=== PATIENT | female | born 1935 | race Caucasian/White ===

== ENCOUNTER 2016-11-23 10:41 | Inpatient (IN) | payer MEDICARE, BC ==
[2016-11-23] MEDS ORDERED: RX INFO: IV CONTRAST WAS GIVEN 1 EACH MISC MISCELLANE PRN (11:11)
--- NOTE | 2016-11-23 11:14 | ED ---
General Adult HPI - General Chief complaint: Shortness of Breath Stated complaint: Dyspnea Time Seen by Provider: 11/23/16 11:07 Source: patient, family, RN notes reviewed Mode of arrival: wheelchair Limitations: no limitations - History of Present Illness Initial comments: Patient is a pleasant 80-year-old female presenting to the emergency Department with complaints of dyspnea. Onset of symptoms was a week or 2 ago. Patient has dyspnea that does worsen with exertion. Symptoms improved with rest. Symptoms are minimal at this time. No chest pain. No cough. No fever. No history of similar symptoms previously. No leg pain or swelling. - Related Data Home Medications Medication Instructions Recorded Confirmed No Known Home Medications [No 11/23/16 11/23/16 Known Home Medications] Allergies Allergy/AdvReac Type Severity Reaction Status Date / Time Sulfa (Sulfonamide Allergy Rash/Hives Verified 11/23/16 11:25 Antibiotics) meperidine [From Demerol] AdvReac Nausea & Verified 11/23/16 11:25 Vomiting Review of Systems ROS Statement: Those systems with pertinent positive or pertinent negative responses have been documented in the HPI. ROS Other: All systems not noted in ROS Statement are negative. Constitutional: Denies: fever Eyes: Denies: eye pain ENT: Denies: ear pain Respiratory: Reports: dyspnea. Denies: cough Cardiovascular: Denies: chest pain Endocrine: Denies: fatigue Gastrointestinal: Denies: abdominal pain Genitourinary: Denies: urgency Musculoskeletal: Denies: back pain Skin: Denies: rash Neurological: Denies: weakness Past Medical History Additional Past Medical History / Comment(s): parkinson, History of Any Multi-Drug Resistant Organisms: None Reported Past Surgical History: Cholecystectomy, Hysterectomy Additional Past Surgical History / Comment(s): lung surgery Past Psychological History: No Psychological Hx Reported Smoking Status: Never smoker Past Alcohol Use History: None Reported Past Drug Use History: None Reported General Exam Limitations: no limitations General appearance: alert, in no apparent distress Head exam: Present: atraumatic Eye exam: Present: normal appearance, PERRL ENT exam: Present: normal oropharynx Neck exam: Present: normal inspection Respiratory exam: Present: normal lung sounds bilaterally Cardiovascular Exam: Present: regular rate, normal rhythm GI/Abdominal exam: Present: soft. Absent: tenderness Extremities exam: Present: normal inspection. Absent: pedal edema, calf tenderness Neurological exam: Present: alert Psychiatric exam: Present: normal affect, normal mood Skin exam: Absent: rash Course Vital Signs 11/23/16 11/23/16 11/23/16 10:46 11:43 12:43 Temperature 97.7 F Pulse Rate 113 H 92 88 Respiratory 18 Rate Blood Pressure 114/84 124/74 128/68 O2 Sat by Pulse 96 Oximetry 11/23/16 11/23/16 13:15 13:17 Temperature 97.9 F Pulse Rate 92 86 Respiratory 18 18 Rate Blood Pressure 124/72 124/72 O2 Sat by Pulse 99 96 Oximetry EKG Findings - EKG Comments: EKG Findings:: Sinus tachycardia 104. IA 160. QRS 132. QT 424. QTC 5-7. Left axis. Nonspecific intraventricular conduction block. Septal Q waves. No acute ST change. Medical Decision Making - Medical Decision Making Patient reevaluated and updated. Case discussed in detail with Dr. Jiang, who will admit his patient with consult for Dr. Pandya and Dr. Roman. - Lab Data Result diagrams: 11/23/16 11:11 11/23/16 11:11 Lab Results 11/23/16 11/23/16 11/23/16 Range/Units 11:11 11:11 11:11 WBC 6.9 (3.8-10.6) k/uL RBC 4.82 (3.80-5.40) m/uL Hgb 14.3 (11.4-16.0) gm/dL Hct 43.6 (34.0-46.0) % MCV 90.4 (80.0-100.0) fL MCH 29.6 (25.0-35.0) pg MCHC 32.8 (31.0-37.0) g/dL RDW 13.3 (11.5-15.5) % Plt Count 378 (150-450) k/uL Neutrophils % 87 % Lymphocytes % 5 % Monocytes % 5 % Eosinophils % 2 % Basophils % 0 % Neutrophils # 6.0 (1.3-7.7) k/uL Lymphocytes # 0.3 L (1.0-4.8) k/uL Monocytes # 0.3 (0-1.0) k/uL Eosinophils # 0.1 (0-0.7) k/uL Basophils # 0.0 (0-0.2) k/uL PT (9.0-12.0) sec INR (<1.1) APTT (22.0-30.0) sec Sodium 141 (137-145) mmol/L Potassium 4.1 (3.5-5.1) mmol/L Chloride 99 (98-107) mmol/L Carbon Dioxide 27 (22-30) mmol/L Anion Gap 15 mmol/L BUN 14 (7-17) mg/dL Creatinine 0.79 (0.52-1.04) mg/dL Est GFR (MDRD) Af Amer >60 (>60 ml/min/1.73 sqM) Est GFR (MDRD) Non-Af >60 (>60 ml/min/1.73 sqM) Glucose 118 H (74-99) mg/dL Calcium 9.6 (8.4-10.2) mg/dL Total Bilirubin 0.5 (0.2-1.3) mg/dL AST 17 (14-36) U/L ALT 24 (9-52) U/L Alkaline Phosphatase 126 (38-126) U/L Total Creatine Kinase 21 L (30-135) U/L CK-MB (CK-2) 0.8 (0.0-2.4) ng/mL CK-MB (CK-2) Rel Index 3.8 Troponin I 0.030 (0.000-0.034) ng/mL NT-Pro-B Natriuret Pep pg/mL Total Protein 7.6 (6.3-8.2) g/dL Albumin 3.9 (3.5-5.0) g/dL 11/23/16 11/23/16 Range/Units 11:11 11:11 WBC (3.8-10.6) k/uL RBC (3.80-5.40) m/uL Hgb (11.4-16.0) gm/dL Hct (34.0-46.0) % MCV (80.0-100.0) fL MCH (25.0-35.0) pg MCHC (31.0-37.0) g/dL RDW (11.5-15.5) % Plt Count (150-450) k/uL Neutrophils % % Lymphocytes % % Monocytes % % Eosinophils % % Basophils % % Neutrophils # (1.3-7.7) k/uL Lymphocytes # (1.0-4.8) k/uL Monocytes # (0-1.0) k/uL Eosinophils # (0-0.7) k/uL Basophils # (0-0.2) k/uL PT 11.1 (9.0-12.0) sec INR 1.1 (<1.1) APTT 22.2 (22.0-30.0) sec Sodium (137-145) mmol/L Potassium (3.5-5.1) mmol/L Chloride (98-107) mmol/L Carbon Dioxide (22-30) mmol/L Anion Gap mmol/L BUN (7-17) mg/dL Creatinine (0.52-1.04) mg/dL Est GFR (MDRD) Af Amer (>60 ml/min/1.73 sqM) Est GFR (MDRD) Non-Af (>60 ml/min/1.73 sqM) Glucose (74-99) mg/dL Calcium (8.4-10.2) mg/dL Total Bilirubin (0.2-1.3) mg/dL AST (14-36) U/L ALT (9-52) U/L Alkaline Phosphatase (38-126) U/L Total Creatine Kinase (30-135) U/L CK-MB (CK-2) (0.0-2.4) ng/mL CK-MB (CK-2) Rel Index Troponin I (0.000-0.034) ng/mL NT-Pro-B Natriuret Pep 273 pg/mL Total Protein (6.3-8.2) g/dL Albumin (3.5-5.0) g/dL - Radiology Data Radiology results: report reviewed (Computed tomography scan negative for pulmonary embolism. There is large anterior mediastinal mass which may reflect conglomerate of adenopathy with adjacent atelectasis. Massive thymic origin is also a consideration. Chronic inflammatory changes also noted.) Disposition Clinical Impression: Dyspnea, Mediastinal mass Disposition: ADMITTED IP TO THIS HOSP
[2016-11-23 11:25] LABS: Basophils % (A) 0 %; CH 29.3; CHCM 32.5; Eosinophils # (A) 0.1 k/uL (0-0.7); Eosinophils % (A) 2 %; HCT 43.6 % (34.0-46.0); HDW 2.49; HGB 14.3 gm/dL (11.4-16.0); Luc # (Auto) 0.08; Luc % (Auto) 1; Lymphocytes # (A) 0.3 k/uL (1.0-4.8); Lymphocytes % (A) 5 %; MCH 29.6 pg (25.0-35.0); MCHC 32.8 g/dL (31.0-37.0); MCV 90.4 fL (80.0-100.0); Mean Platelet Volume 7.3; Monocytes # (A) 0.3 k/uL (0-1.0); Monocytes % (A) 5 %; Neutrophils % (A) 87 %; RBC 4.82 m/uL (3.80-5.40); RDW 13.3 % (11.5-15.5); WBC 6.9 k/uL (3.8-10.6); WBC (Perox) 6.69
[2016-11-23 11:32] LABS: ALT 24 U/L (9-52); AST 17 U/L (14-36); Alkaline Phosphatase 126 U/L (38-126); Anion Gap 15 mmol/L; Blood Urea Nitrogen 14 mg/dL (7-17); Calcium 9.6 mg/dL (8.4-10.2); Carbon Dioxide 27 mmol/L (22-30); Chloride 99 mmol/L (98-107); Glucose 118 mg/dL (74-99); Non-African American GFR(MDRD) >60 (>60 ml/min/1.73 sqM); Potassium 4.1 mmol/L (3.5-5.1); Sodium 141 mmol/L (137-145); Total Bilirubin 0.5 mg/dL (0.2-1.3); Total Protein 7.6 g/dL (6.3-8.2)
[2016-11-23 11:58] LABS: Creatine Kinase MB 0.8 ng/mL (0.0-2.4); Troponin I 0.03 ng/mL (0.000-0.034)
[2016-11-23 12:00] LABS: INR 1.1 (<1.1); Partial Thromboplastin Time 22.2 sec (22.0-30.0); Prothrombin Time 11.1 sec (9.0-12.0)
--- NOTE | 2016-11-23 13:06 | CT ---
EXAMINATION TYPE: CT angio chest DATE OF EXAM: 11/23/2016 12:56 PM COMPARISON: NONE HISTORY: Patient complains of difficulty breathing. CT DLP: 459 mGycm CONTRAST: CT chest with contrast and 3D reconstruction with MIP imaging is performed with IV Contrast, patient injected with 100 mL of Omnipaque 350. Contrast-enhanced CT of the chest was performed through the course of the pulmonary arteries with bryon g and mediastinal window settings submitted. 3D reconstruction with MIP imaging was also performed. PULMONARY ARTERIES: The pulmonary arteries and their major tributaries are patent. I do not see can dence for sizable filling defect to suggest pulmonary embolic process. LUNGS: There is right upper lobe volume loss with the infiltrate and underlying bronchiectasis. There is also left upper lobe infiltrate with associated volume loss. Narrowing left upper lobe bronchus. MEDIASTINUM: There is a large anterior mediastinal mass measuring 7.7 x 8.4 x 6.2 cm which may reflec t massive conglomerate adenopathy with adjacent atelectatic lung. There is also subcarinal adenopathy measuring 2.2 cm. HILAR STRUCTURES: No evidence for mass. No hilar lymph nodes greater than 1 cm. UPPER ABDOMEN: No significant abnormality is seen. IMPRESSION: 1. No evidence for Pulmonary embolism at this time. 2. Large anterior mediastinal mass which may reflect conglomerate adenopathy with adjacent to atelect atic lung. Mass of thymic origin is also a consideration. 3. Upper lobe chronic inflammatory changes noted
[2016-11-23] MEDS ORDERED: NALOXONE 0.4 MG/ML 1 ML VIAL IV PRN (13:53)
[2016-11-23] MEDS: SODIUM CHLORIDE 0.9% 1,000 ML IV SCH (14:21)
[2016-11-24 09:28] LABS: Basophils % (A) 0 %; CHCM 31.3; Eosinophils # (A) 0.2 k/uL (0-0.7); Eosinophils % (A) 3 %; HDW 2.37; Hypochromasia Slight; Luc # (Auto) 0.08; Luc % (Auto) 1; Lymphocytes # (A) 0.4 k/uL (1.0-4.8); Lymphocytes % (A) 6 %; MCH 28.7 pg (25.0-35.0); MCHC 30.9 g/dL (31.0-37.0); MCV 92.9 fL (80.0-100.0); Mean Platelet Volume 6.5; Monocytes # (A) 0.3 k/uL (0-1.0); Monocytes % (A) 5 %; Neutrophils # (A) 5.4 k/uL (1.3-7.7); Neutrophils % (A) 85 %; RBC 4.53 m/uL (3.80-5.40); RDW 13.3 % (11.5-15.5); WBC 6.3 k/uL (3.8-10.6); WBC (Perox) 6.41
[2016-11-24 09:39] LABS: ALT 19 U/L (9-52); AST 15 U/L (14-36); Alkaline Phosphatase 94 U/L (38-126); Anion Gap 13 mmol/L; Blood Urea Nitrogen 15 mg/dL (7-17); Calcium 9.2 mg/dL (8.4-10.2); Carbon Dioxide 27 mmol/L (22-30); Chloride 103 mmol/L (98-107); Glucose 164 mg/dL (74-99); Non-African American GFR(MDRD) >60 (>60 ml/min/1.73 sqM); Potassium 3.7 mmol/L (3.5-5.1); Sodium 143 mmol/L (137-145); Total Bilirubin 0.5 mg/dL (0.2-1.3); Total Protein 6.8 g/dL (6.3-8.2)
[2016-11-24 10:37] VITALS: BMI 16.8
[2016-11-24] MEDS: ENOXAPARIN 40 MG/0.4 ML SYRINGE SQ SCH ×2 (10:38→13:37)
[2016-11-24] MEDS: FAMOTIDINE 20 MG TAB PO SCH (10:38)
--- NOTE | 2016-11-24 10:55 | P.CNPUL ---
History of Present Illness Consult date: 11/24/16 Requesting physician: Jhon Jiang Reason for consult: abnormal CXR/CT Chief complaint: Progressive shortness of breath History of present illness: This is a very pleasant 80-year-old female patient who follows with Dr. Apolinar meza as her primary care physician. She has a history of Parkinson's disease. No other major medical problems. She is on no home medications. She does have a previous history of a lung mass greater than 30 years ago and had undergone a right-sided thoracotomy. The mass was reported as benign. She has seen Dr. Santana in the past for COPD. She did have a 30 year smoking history but quit back in 1982. She has not had any exacerbations and has not been on any inhalers in several years. She recently had complaints of left lower extremity pain and was concerned regarding possible blood clot. She was seen by her PCP and DVT was ruled out. However shortly after that she started having some progressive shortness of breath. She presented here to the emergency room for the same. A CT angiogram was performed and pulmonary embolism was ruled out. However, there is a noted large anterior mediastinal mass that may reflect conglomerate adenopathy with adjacent atelectasis of the lungs. Massive thymic origin was also in the differential. There is some upper lobe chronic inflammatory change noted as well. patient has had a slow progressive weight loss blames this on decreased appetite as she resides at home alone. No significant cough or congestion. No hemoptysis. No leukocytosis. No fever. She is maintaining O2 saturations in the upper 90s on 2 L/m per nasal cannula. Review of Systems 14 point review of system was conducted. All negative other than as mentioned in HPI. Past Medical History Past Medical History: GERD/Reflux, Hyperlipidemia Additional Past Medical History / Comment(s): parkinsons,tremors,"irreg heart beat", palpitations.ibs, urinary incont,"2 leaky heart valves" History of Any Multi-Drug Resistant Organisms: None Reported Past Surgical History: Adenoidectomy, Appendectomy, Bowel Resection, Cholecystectomy, Hysterectomy, Tonsillectomy Additional Past Surgical History / Comment(s): polyp removed from voacal cord 2000(benign", bladder suspension, cystocele, bronchoscopy/bx, tumor removed from rt lung and i rib removed, bowel resection d/t obstruction-4" growth in bowel(benign), colonoscopy Past Anesthesia/Blood Transfusion Reactions: Previous Problems w/ Anesthesia Additional Past Anesthesia/Blood Transfusion Reaction / Comment(s): difficulty waking after colonoscopy. pt stated "a little aa goes a long way" Past Psychological History: No Psychological Hx Reported Additional Psychological History / Comment(s): pt lives in own home alone-has medical alert system. uses a walker when outside home. no other hospital equipment. has ramp and 1 step into home.lives in a ranch style home. has someone come in a clean for her.pt used to work at [employer] as an aide. Smoking Status: Former smoker Past Alcohol Use History: None Reported Additional Past Alcohol Use History / Comment(s): started smoking in 1952, 1 ppd , quit 1982 Past Drug Use History: None Reported - Past Family History Father Family Medical History: Hypertension Additional Family Medical History / Comment(s): at age 87 Mother Family Medical History: Hypertension Additional Family Medical History / Comment(s): at age 87 Medications and Allergies Home Medications Medication Instructions Recorded Confirmed Type No Known Home Medications [No 11/23/16 11/23/16 History Known Home Medications] Allergies Allergy/AdvReac Type Severity Reaction Status Date / Time Sulfa (Sulfonamide Allergy Rash/Hives Verified 11/23/16 11:25 Antibiotics) meperidine [From Demerol] AdvReac Nausea & Verified 11/23/16 11:25 Vomiting Physical Exam Vitals: Vital Signs Temp Pulse Pulse Resp BP BP BP 11/24/16 08:00 77 18 11/24/16 07:00 97.5 F L 77 18 125/73 11/23/16 23:00 96.6 F L 82 18 115/68 11/23/16 20:00 18 11/23/16 17:00 97.6 F 117 H 16 132/96 11/23/16 16:57 18 11/23/16 15:13 108 H 18 130/71 11/23/16 14:43 96 18 125/74 11/23/16 14:13 110 H 18 134/80 Pulse Ox 11/24/16 08:00 11/24/16 07:00 98 11/23/16 23:00 97 11/23/16 20:00 11/23/16 17:00 96 11/23/16 16:57 11/23/16 15:13 97 03/08/17 14:43 98 11/23/16 14:13 Intake and Output 11/23/16 11/24/16 11/24/16 22:59 06:59 14:59 Intake Total 160 120 Balance 160 120 Intake: Intake, IV Titration 160 Amount Sodium Chloride 0.9% 1, 160 000 ml @ 20 mls/hr IV . Q24H DAMARIS Rx#:[id number] Oral 120 Other: # Voids 1 Weight 44.452 kg Patient Weight 11/25/16 06:59 Weight 44.452 kg GENERAL EXAM: Cachectic. Alert, active, comfortable in no apparent distress. HEAD: Normocephalic. EYES: Normal reaction of pupils, equal size. NOSE: Clear with pink turbinates. THROAT: No erythema or exudates. NECK: No masses, no JVD. CHEST: No chest wall deformity. LUNGS: Equal air entry with no crackles, wheeze, rhonchi or dullness. CVS: S1 and S2 normal with an audible murmur, regular rhythm. ABDOMEN: No hepatosplenomegaly, normal bowel sounds, no guarding or rigidity. SPINE: No scoliosis or deformity SKIN: No rashes CENTRAL NERVOUS SYSTEM: No focal deficits, tone is normal in all 4 extremities. Essential tremors. Extremities: There is no peripheral edema. No clubbing, no cyanosis. Peripheral pulses are intact. Results - Laboratory Findings CBC and BMP: 11/24/16 09:08 11/24/16 09:08 PT/INR, D-dimer PT 11.1 sec (9.0-12.0) 11/23/16 11:11 INR 1.1 (<1.1) 11/23/16 11:11 Abnormal lab findings: Abnormal Labs 11/24/16 11/24/16 09:08 09:08 MCHC 30.9 L Lymphocytes # 0.4 L Glucose 164 H - Diagnostic Findings Chest x-ray: image reviewed CT scan - chest: image reviewed Assessment and Plan Plan: Impression: #1 Progressive dyspnea secondary to large anterior mediastinal mass measuring 7.7 x 8.4 x 6.2 cm reflecting possible massive conglomerate adenopathy with adjacent atelectatic lung. There is also subcarinal adenopathy measuring 2.2 cm. #2 Progressive weight loss. #3 Chronic obstructive pulmonary disease, currently inactive and stable. #4 Chronic tobacco dependence of 30 years however quit back in 1982. #5 Parkinson's disease. Plan: The patient was seen and evaluated by Dr. Hernandez. Her computed tomography scan was reviewed. We feel the best approach would be a mediastinoscopy for diagnosis. We will go ahead and consult cardiothoracic surgery regarding possible biopsy of the large mediastinal mass. She remains on Lovenox for DVT prophylaxis. We will continue to follow make further recommendations based on her clinical status. Time with Patient: Greater than 30
--- NOTE | 2016-11-24 12:12 | P.HPIM ---
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 Patient presents to the emergency room with complaints of worsening shortness of breath over the last 2 weeks. She does admit to having a slight cough with clearish sputum. No blood-tinged sputum. Patient reports not being on any medications. She does have a 30 year smoking history. She had a CTA of the chest completed showing no evidence for pulmonary embolism. A large anterior mediastinal mass which may reflect conglomerate adenopathy with adjacent to atelectatic lung. Pulmonary service has been consulted. They're also requesting a vascular surgery consult for possible mediastinoscopy. Patient denies any chest pain. Denies any nausea or vomiting. Denies any bowel movement changes or urinary symptoms. She denies any fevers chills or sweats. She has noted some weight loss however her appetite has been decreased. Patient does live alone. Review of Systems Please refer to HPI otherwise unremarkable Past Medical History Past Medical History: GERD/Reflux, Hyperlipidemia Additional Past Medical History / Comment(s): parkinsons,tremors,"irreg heart beat", palpitations.ibs, urinary incont,"2 leaky heart valves" History of Any Multi-Drug Resistant Organisms: None Reported Past Surgical History: Adenoidectomy, Appendectomy, Bowel Resection, Cholecystectomy, Hysterectomy, Tonsillectomy Additional Past Surgical History / Comment(s): polyp removed from voacal cord 2000(benign", bladder suspension, cystocele, bronchoscopy/bx, tumor removed from rt lung and i rib removed, bowel resection d/t obstruction-4" growth in bowel(benign), colonoscopy Past Anesthesia/Blood Transfusion Reactions: Previous Problems w/ Anesthesia Additional Past Anesthesia/Blood Transfusion Reaction / Comment(s): difficulty waking after colonoscopy. pt stated "a little aa goes a long way" Past Psychological History: No Psychological Hx Reported Additional Psychological History / Comment(s): pt lives in own home alone-has medical alert system. uses a walker when outside home. no other hospital equipment. has ramp and 1 step into home.lives in a ranch style home. has someone come in a clean for her.pt used to work at [employer] as an aide. Smoking Status: Former smoker Past Alcohol Use History: None Reported Additional Past Alcohol Use History / Comment(s): started smoking in 1953, 1 ppd , quit 1982 Past Drug Use History: None Reported - Past Family History Father Family Medical History: Hypertension Additional Family Medical History / Comment(s): at age 87 Mother Family Medical History: Hypertension Additional Family Medical History / Comment(s): at age 87 Medications and Allergies Home Medications Medication Instructions Recorded Confirmed Type No Known Home Medications [No 11/23/16 11/23/16 History Known Home Medications] Allergies Allergy/AdvReac Type Severity Reaction Status Date / Time Sulfa (Sulfonamide Allergy Rash/Hives Verified 11/23/16 11:25 Antibiotics) meperidine [From Demerol] AdvReac Nausea & Verified 11/23/16 11:25 Vomiting Physical Exam Vitals: Vital Signs Temp Pulse Pulse Resp BP BP BP 11/24/16 08:00 77 18 11/24/16 07:00 97.5 F L 77 18 125/73 11/23/16 23:00 96.6 F L 82 18 115/68 11/23/16 20:00 18 11/23/16 17:00 97.6 F 117 H 16 132/96 11/23/16 16:57 18 11/23/16 15:13 108 H 18 130/71 11/23/16 14:43 96 18 125/74 11/23/16 14:13 110 H 18 134/80 Pulse Ox 11/24/16 08:00 11/24/16 07:00 98 11/23/16 23:00 97 11/23/16 20:00 11/23/16 17:00 96 11/23/16 16:57 11/23/16 15:13 97 11/23/16 14:43 98 11/23/16 14:13 Intake and Output 11/23/16 11/24/16 11/24/16 22:59 06:59 14:59 Intake Total 160 120 Balance 160 120 Intake: Intake, IV Titration 160 Amount Sodium Chloride 0.9% 1, 160 000 ml @ 20 mls/hr IV . Q24H DAMARIS Rx#:[id number] Oral 120 Other: # Voids 1 3 Weight 44.452 kg Patient Weight 11/25/16 06:59 Weight 44.452 kg Head normocephalic Neck supple Lungs clear to auscultation bilaterally no wheezing or crackles Heart regular rate and rhythm S1-S2, no rub or gallop Abdomen is soft nontender nondistended positive bowel sounds no hepatosplenomegaly Extremities no edema Neuro alert and orientated to 3 Results CBC & Chem 7: 11/24/16 09:08 11/24/16 09:08 Labs: Abnormal Lab Results - Last 24 Hours (Table) 11/24/16 11/24/16 Range/Units 09:08 09:08 MCHC 30.9 L (31.0-37.0) g/dL Lymphocytes # 0.4 L (1.0-4.8) k/uL Glucose 164 H (74-99) mg/dL Assessment and Plan Plan: 1. Dyspnea secondary to large anterior mediastinal mass. Pulmonary service consulted. Appreciate their recommendations. We'll await cardiothoracic surgery evaluation for possible mediastinoscopy 2. History of nicotine dependence for 30 years. Quit in 1982 3. History of Parkinson's disease. Not on any medications at home GI prophylaxis Pepcid and DVT prophylaxis Lovenox Time with Patient: Greater than 30 (Greater than 50% of the total time spent in counseling and coordination of care.I performed an examination of the patient and discussed their management with the physician Wheat Grower. I have reviewed the Physician Wheat Grower's notes and agree with the documented findings and plan of care)
[2016-11-24] MEDS: SODIUM CHLORIDE 0.9% 1,000 ML IV SCH (13:37)
[2016-11-24] MEDS ORDERED: IOHEXOL 350 MG/ML 25 ML BOTTLE (ORAL USE) PO PRN (17:15)
[2016-11-24] MEDS ORDERED: RX INFO: IV CONTRAST WAS GIVEN 1 EACH MISC MISCELLANE PRN (17:15)
--- NOTE | 2016-11-25 01:12 | P.CONS ---
History of Present Illness - Reason for Consult Consult date: 11/24/16 Mediastinal mass - History of Present Illness This is a 80-year-old female with a known past medical history of Parkinson' s disease, previous history of smoking. Patient presented to the emergency room with complaints of worsening shortness of breath over the last 2 weeks and a slight cough with clear sputum. She does have a 30 year smoking history. She had a CTA of the chest completed showing no evidence for pulmonary embolism. However a large anterior mediastinal mass, 8.4 x 7.7 x 6.2 cm, felt to likely reflect conglomerate adenopathy with adjacent atelectatic lung was seen. The consult was thus placed for further evaluation and recommendations. 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 The melanoma appears to have been an early stage, as no further treatment was recommended. Review of Systems Constitutional: Reports fatigue Eyes: denies blurred vision, denies pain Ears: deny: decreased hearing, ear discharge, earache, tinnitus Ears, nose, mouth and throat: Denies headache, Denies sore throat Cardiovascular: Reports shortness of breath Respiratory: Reports as per HPI (Known COPD), Reports cough with sputum, Reports dyspnea Gastrointestinal: Denies abdominal pain, Denies diarrhea, Denies nausea, Denies vomiting Genitourinary: Denies dysuria, Denies hematuria Menstruation: Reports postmenopausal Musculoskeletal: Denies myalgias Integumentary: Denies pruritus, Denies rash Neurological: Reports tremors (known h/o Parkinson's) Psychiatric: Denies anxiety, Denies depression Endocrine: Denies fatigue, Denies weight change Hematologic/Lymphatic: Reports as per HPI Past Medical History Past Medical History: GERD/Reflux, Hyperlipidemia Additional Past Medical History / Comment(s): parkinsons,tremors,"irreg heart beat", palpitations.ibs, urinary incont,"2 leaky heart valves" History of Any Multi-Drug Resistant Organisms: None Reported Past Surgical History: Adenoidectomy, Appendectomy, Bowel Resection, Cholecystectomy, Hysterectomy, Tonsillectomy Additional Past Surgical History / Comment(s): polyp removed from voacal cord 2000(benign", bladder suspension, cystocele, bronchoscopy/bx, tumor removed from rt lung and i rib removed, bowel resection d/t obstruction-4" growth in bowel(benign), colonoscopy Past Anesthesia/Blood Transfusion Reactions: Previous Problems w/ Anesthesia Additional Past Anesthesia/Blood Transfusion Reaction / Comm: difficulty waking after colonoscopy. pt stated "a little aa goes a long way" Past Psychological History: No Psychological Hx Reported Additional Psychological History / Comment(s): pt lives in own home alone-has medical alert system. uses a walker when outside home. no other hospital equipment. has ramp and 1 step into home.lives in a ranch style home. has someone come in a clean for her.pt used to work at [employer] as an aide. Smoking Status: Former smoker Past Alcohol Use History: None Reported Additional Past Alcohol Use History / Comment(s): started smoking in 1952, 1 ppd , quit 1982 Past Drug Use History: None Reported - Past Family History Father Family Medical History: Hypertension Additional Family Medical History / Comment(s): at age 87 Mother Family Medical History: Hypertension Additional Family Medical History / Comment(s): at age 87 Medications and Allergies Home Medications Medication Instructions Recorded Confirmed Type No Known Home Medications [No 11/23/16 11/23/16 History Known Home Medications] Allergies Allergy/AdvReac Type Severity Reaction Status Date / Time Sulfa (Sulfonamide Allergy Rash/Hives Verified 11/23/16 11:25 Antibiotics) meperidine [From Demerol] AdvReac Nausea & Verified 11/23/16 11:25 Vomiting Physical Exam Vitals: Vital Signs Temp Pulse Resp BP Pulse Ox 11/24/16 23:00 98.7 F 85 18 134/70 96 11/24/16 16:00 105 H 16 11/24/16 15:00 97 F L 105 H 16 104/74 97 11/24/16 08:00 77 18 11/24/16 07:00 97.5 F L 77 18 125/73 98 Intake and Output 11/24/16 11/24/16 11/25/16 14:59 22:59 06:59 Intake Total 360 240 Balance 360 240 Intake: Oral 360 240 Other: Voiding Method Toilet # Voids 2 2 Weight 44.452 kg Patient Weight 11/25/16 06:59 Weight 44.452 kg - Constitutional General appearance: no acute distress - EENT Eyes: EOMI, PERRLA ENT: hearing grossly normal, normal oropharynx - Neck Neck: no lymphadenopathy Thyroid: bilateral: normal size - Respiratory Respiratory: right: wheezing (rt upper), bilateral: diminished - Cardiovascular Rhythm: regular Heart sounds: normal: S1, S2 - Gastrointestinal General gastrointestinal: normal bowel sounds, soft - Integumentary Integumentary: normal - Neurologic Tremors, with head affected prominently Neurologic: CNII-XII intact - Musculoskeletal Musculoskeletal: strength equal bilaterally - Psychiatric Psychiatric: A&O x's 3, appropriate affect Results CBC & Chem 7: 11/24/16 09:08 11/24/16 09:08 Labs: Abnormal Lab Results - Last 24 Hours (Table) 11/24/16 11/24/16 Range/Units 09:08 09:08 MCHC 30.9 L (31.0-37.0) g/dL Lymphocytes # 0.4 L (1.0-4.8) k/uL Glucose 164 H (74-99) mg/dL CT scan - chest: report reviewed, image reviewed Assessment and Plan (1) Mediastinal mass Narrative/Plan: The pt is presenting with a large mediastinal mass, which likely appears to be conglomerated adenopathy. A primary central mass with adjacet adenopathy is also possible. The clinical picture is highly s/o malignancy. Differentials include lung or thymic primary and lymphoma among others. The implications were discussed with her in detail. A tissue diagnosis is needed. Mediastinoscopy and bronchoscopy would both be reasonable approaches. Pulmonary medicine has been consulted, and we will await their input in this regard Check CT AP for further staging. Status: Acute Plan: Defer to the admitting service for management of her other medical problems
[2016-11-25 07:46] VITALS: BP 110/67; PULSE 89; RESP 20; TEMP 96.7
[2016-11-25] MEDS: FAMOTIDINE 20 MG TAB PO SCH (08:26)
[2016-11-25 10:11] LABS: ALT 20 U/L (9-52); AST 13 U/L (14-36); Alkaline Phosphatase 79 U/L (38-126); Anion Gap 12 mmol/L; Basophils % (A) 0 %; Blood Urea Nitrogen 12 mg/dL (7-17); CH 28.9; CHCM 31.4; Calcium 8.8 mg/dL (8.4-10.2); Carbon Dioxide 26 mmol/L (22-30); Chloride 104 mmol/L (98-107); Eosinophils # (A) 0.1 k/uL (0-0.7); Eosinophils % (A) 1 %; Glucose 175 mg/dL (74-99); HCT 36.3 % (34.0-46.0); HGB 11.7 gm/dL (11.4-16.0); Hypochromasia Slight; Luc % (Auto) 1; Lymphocytes # (A) 0.3 k/uL (1.0-4.8); Lymphocytes % (A) 4 %; MCH 29.9 pg (25.0-35.0); MCHC 32.3 g/dL (31.0-37.0); MCV 92.6 fL (80.0-100.0); Mean Platelet Volume 7.4; Monocytes # (A) 0.3 k/uL (0-1.0); Monocytes % (A) 4 %; Neutrophils # (A) 6.3 k/uL (1.3-7.7); Neutrophils % (A) 89 %; Non-African American GFR(MDRD) >60 (>60 ml/min/1.73 sqM); Potassium 3.9 mmol/L (3.5-5.1); RBC 3.92 m/uL (3.80-5.40); RDW 13.4 % (11.5-15.5); Sodium 142 mmol/L (137-145); Total Bilirubin 0.4 mg/dL (0.2-1.3); Total Protein 6.1 g/dL (6.3-8.2); WBC 7.1 k/uL (3.8-10.6); WBC (Perox) 7.44
--- NOTE | 2016-11-25 10:56 | P.PN ---
Subjective Progress note dated down 11/25/2016 This is a 80-year-old female with an anterior mediastinal mass. The differential includes thyroid cancer, thymoma, teratoma, and lymphoma. It could be something benign like a lipoma. It does not look benign to me. I will try to get a diagnosis. Initially interventional radiology did not want to do a fine-needle. Apparently they're reconsidering. Interestingly, the patient states regardless of the diagnosis is status a bad diagnosis, she's not producing anything about it. From her standpoint, she does want to be discharged home. Objective - Vital Signs Vital signs: Vital Signs Temp 96.7 F L 11/25/16 07:00 Pulse 89 11/25/16 07:00 Resp 20 11/25/16 07:00 BP 110/67 11/25/16 07:00 Pulse Ox 97 11/25/16 07:00 Intake & Output 11/24/16 11/25/16 11/25/16 18:59 06:59 18:59 Intake Total 600 Balance 600 Weight 44.452 kg Intake: Oral 600 Other: Voiding Method Toilet # Voids 2 3 - Exam No acute distress, oriented 3. HEENT examination is grossly unremarkable. Mixed membranes are moist. No oral lesions. Neck supple. Full range of motion. No adenopathy or thyromegaly. Cardiovascular examination reveals regular rhythm rate. S1-S2 normal. No S3- S4 or murmur. Lungs reveal clear breath sounds. No wheezes or rhonchi. Abdomen soft bowel sounds are heard. Extremities are intact. - Labs CBC & Chem 7: 11/25/16 08:38 11/25/16 08:38 Labs: Abnormal Lab Results - Last 24 Hours (Table) 11/25/16 11/25/16 Range/Units 08:38 08:38 Lymphocytes # 0.3 L (1.0-4.8) k/uL Glucose 175 H (74-99) mg/dL AST 13 L (14-36) U/L Total Protein 6.1 L (6.3-8.2) g/dL Albumin 3.1 L (3.5-5.0) g/dL Assessment and Plan (1) Dyspnea Status: Acute (2) Mediastinal mass Status: Acute Plan: Plan The patient's doing well. The patient refuses any chemotherapy or any treatment if it turns out to be cancer. She's not sure that she wants a biopsy. I'll leave it to the primary service's side. We'll see as needed. Time with Patient: Less than 30
[2016-11-25] MEDS: SODIUM CHLORIDE 0.9% 1,000 ML IV SCH (13:04)
--- NOTE | 2016-11-25 14:23 | P.DS ---
Providers Date of admission: 11/23/16 13:53 Expected date of discharge: 11/25/16 Attending physician: Jhon Jiang Consults: 11/24/16 11:18 Consult Physician Routine Consulting Provider: Sherlyn Vargas Consult Reason/Comments: Large anterior mediastinal mass Do you want consulting provider notified?: Yes 11/24/16 12:14 Consult Physician Routine Consulting Provider: Tone Malhotra Consult Reason/Comments: Core biopsy of large mediastinal mass Do you want consulting provider notified?: Yes DR Hernandez Primary care physician: [facility] Hospital Course: Discharge diagnosis 1. Dyspnea secondary to large anterior mediastinal mass. 2. History of nicotine dependence for 30 years. Quit in 1982 3. History of Parkinson's disease. Not on any medications at home Hospital course this is a 80-year-old female with a known past medical history of Parkinson's disease, previous history of smoking, benign lung tumor in the right side of her chest, and melanoma of the neck. Patient presents to the emergency room with complaints of worsening shortness of breath over the last 2 weeks. She does admit to having a slight cough with clearish sputum. No blood-tinged sputum. Patient reports not being on any medications. She does have a 30 year smoking history. She had a CTA of the chest completed showing no evidence for pulmonary embolism. A large anterior mediastinal mass measuring 7.7 x 8.4 x 6.2 cm which may reflect conglomerate adenopathy with adjacent to atelectatic lung. Pulmonary service has been consulted. They're also requesting a vascular surgery consult for possible mediastinoscopy. Patient was evaluated by pulmonary service, oncology and thoracic surgery. There was discussion about biopsying the mass. However patient is not interested in any treatment for the mediastinal mass and at this time is refusing having a biopsy completed. Patient's will then be discharged home and will follow-up with her in the office. She is not requiring home oxygen. With ambulation she is satting at 93%. Nebulizer treatments with nebulizer machine has been ordered for patient. Patient is stable for discharge. Please refer to chart for any further details. Patient will be seen in the office either on Monday or Monday. Patient Condition at Discharge: Stable Plan - Discharge Summary Discharge Medication List No Known Home Medications [No Known Home Medications] 11/23/16 [History] Follow up Appointment(s)/Referral(s): [facility] Visiting Nurse, [NON-STAFF] - Jhon Jiang MD [Primary Care Provider] - 3 Days Activity/Diet/Wound Care/Special Instructions: Diet Regular Activity as tolerated Discharge Disposition: HOME WITH HOME HEALTH SERVICES
== END 2016-11-25 15:44 | disposition home health service (06) | DRG 607 ==
LOC: EC 10:41 → 5MS5E 13:53 → 4MS4W 14:58
PROVIDERS: ADMIT Internal Medicine; ATTEND Internal Medicine
DX: R22.2 Localized swelling, mass and lump, trunk (principal); G20 Parkinson's disease; R06.00 Dyspnea, unspecified; J44.9 Chronic obstructive pulmonary disease, unspecified; E78.5 Hyperlipidemia, unspecified; K21.9 Gastro-esophageal reflux disease without esophagitis; K58.9 Irritable bowel syndrome, unspecified; R32 Unspecified urinary incontinence; R63.4 Abnormal weight loss; Z68.1 Body mass index [BMI] 19.9 or less, adult; Z85.820 Personal history of malignant melanoma of skin; Z87.891 Personal history of nicotine dependence; Z88.5 Allergy status to narcotic agent; Z88.2 Allergy status to sulfonamides; Z82.49 Family history of ischemic heart disease and other diseases of the circulatory system
CPT/HCPCS: 36415; 71275; 80053; 82550; 82553; 83880; 84484; 85025; 85610; 85730; 93005; 99285